=== PATIENT | male | born 1950 | race Caucasian/White ===

== ENCOUNTER 2017-01-30 08:50 | Outpatient (CLI) | payer OTHER ==
[2016-03-09 10:50] VITALS: BP 129/79
[2017-01-30 09:38] LABS: eGFR (African) > 60; eGFR (Non-African) > 60
== END 2017-01-30 08:52 ==
LOC: LAB 08:50
PROVIDERS: ATTEND Family Medicine
DX: E11.9 Type 2 diabetes mellitus without complications (principal); Z12.5 Encounter for screening for malignant neoplasm of prostate
CPT/HCPCS: 36415; 80053; 80061; 82043; 83036; 84153

== ENCOUNTER 2017-10-17 12:59 | Outpatient (CLI) | payer MEDICARE, OTHER ==
[2016-03-09 10:50] VITALS: BP 129/79
[2017-10-17 13:52] LABS: eGFR (African) > 60; eGFR (Non-African) > 60
== END 2017-10-17 13:00 ==
LOC: LAB 12:59
PROVIDERS: ATTEND Family Medicine
DX: E11.9 Type 2 diabetes mellitus without complications (principal)
CPT/HCPCS: 36415; 80053; 83036

== ENCOUNTER 2017-10-20 17:55 | Emergency (ER) | payer MEDICARE, OTHER ==
[2017-10-20] MEDS ORDERED: FUROSEMIDE 40 MG TABLET PO ONE (20:48)
--- NOTE | 2017-10-20 20:58 | ED Physician Documentation ---
Lower Extremity Problem - HISTORIAN Historian: patient, spouse - HPI Stated Complaint: Swelling to Bilateral Legs Chief Complaint: Lower Extremity Problem Additional Information: progressive leg edema hx diabetes plus lymph edema. 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 Location of Injury: R leg (lt is worse has std weeping slightly-pt has them wrapped), L leg Onset: other (2yrs ago after had bilateral knee replacement-dr cruz. also diabetes and lymphangitis plus has brother who has swollen legs) Timing: worse Recent Injury: No Severity: moderate Quality: swelling, tenderness (weeping) Exacerbated By: other (sitting and standing) Relieved By: rest (elevation lasix) - ROS CONST: no problems. denies: recent illness, fever, sweating MS/SKIN/LYMPH: leg swelling, ankle swelling (some weeping jose lt leg) GI/: denies: problems urinating NERUO/PSYCH: denies: difficulty walking (does do regular exercises since knee replacement) - PAST HX Past History: other (diabetes lymphamgitis htn) Surgeries/Procedures: other (bilat knees) Allergies/Adverse Reactions: Allergies Allergy/AdvReac Type Severity Reaction Status Date / Time No Known Drug Allergies Allergy Unverified 10/20/17 18:21 Home Medications: Ambulatory Orders Medication Instructions Recorded Furosemide [Lasix] 20 mg PO BID 10/20/17 - SOCIAL HX Smoking History: non-smoker - FAMILY HX Family History: other (brother has leg edema) - VITAL SIGNS Vital Signs: Vital Signs Temp Pulse Resp BP Pulse Ox 98.7 F 77 18 153/69 99 10/20/17 17:55 10/20/17 17:55 10/20/17 17:55 10/20/17 17:55 10/20/17 17:55 - REVIEWED ASSESSMENTS Nursing Assessment Reviewed: Yes Vitals Reviewed: Yes ED Results Lab/Radiology - Orders Orders: ED Orders Category Date Time Status Furosemide [Lasix] Med 10/20/17 20:48 Once 40 mg PO NOW ONE Lower Extremity Problem - EXAM General Appearance: mild distress Neuro/Tendon: normal sensation, normal motor functions RESPIRATORY: no resp distress, chest non-tender, breath sounds normal. No: wheezes, rales, rhonchi CVS: reg rate & rhythm, heart sounds normal (no JVD) NEURO/PSYCH: oriented X3, motor nml, sensation nml, mood/affect nml, cognition normal SKIN: warm/dry, normal color. No: cyanosis, diaphoresis, jaundice Discharge Clincal Impression: chronic leg edema, diabetes and lymphangitis Referrals: Wilner Thompson MD [Primary Care Provider] - 2 Days Comments: home restart lasix-legs elevated higher than heart walk but dont sit or stank no work until seen by DR THOMPSON Condition: Good Disposition: 01 HOME, SELF-CARE Decision to Admit: NO Decision Time: 21:07
[2017-10-21 00:28] VITALS: BP 151/73
== END 2017-10-20 21:00 | disposition home or self-care (01) ==
LOC: ED 17:55
DX: R60.0 Localized edema (principal); E11.9 Type 2 diabetes mellitus without complications; I89.1 Lymphangitis
CPT/HCPCS: 99283